=== PATIENT | female | born 1940 | race Caucasian/White ===

== ENCOUNTER 2021-04-08 03:20 | Outpatient (CLI) | payer MEDICARE, SELFPAY ==
[2021-04-08 12:35] LABS: Source Nasal/Nares
[2021-04-08 20:16] LABS: COVID-19 PCR Negative (Negative)
== END 2021-04-08 03:21 | disposition home or self-care (01) ==
LOC: LBO 03:21
PROVIDERS: Visit Provider Ophthalmology
DX: Z20.822 Contact with and (suspected) exposure to COVID-19 (principal); Z01.818 Encounter for other preprocedural examination
CPT/HCPCS: 87635

== ENCOUNTER 2021-04-22 07:27 | Outpatient (CLI) | payer MEDICARE, SELFPAY ==
[2021-04-22 10:14] LABS: Source Nasal/Nares
[2021-04-22 13:06] LABS: COVID-19 PCR Negative (Negative)
== END 2021-04-22 07:28 | disposition home or self-care (01) ==
LOC: LBO 07:28
PROVIDERS: Visit Provider Ophthalmology
DX: Z20.822 Contact with and (suspected) exposure to COVID-19 (principal); Z01.818 Encounter for other preprocedural examination
CPT/HCPCS: 87635

== ENCOUNTER 2021-04-25 10:22 | Day surgery (SDC) | payer MEDICARE, MEDICAID, SELFPAY ==
[2021-04-25 11:05] VITALS: BP 189/87; PULSE 88; RESP 16; TEMP 36.7; O2SAT 98
--- NOTE | 2021-04-25 11:18 | W.ANESPRE ---
General Info Date of Service Date Performed: 04/25/21 Height: 5 ft 5 in Weight: 92.2 kg Body Mass Index (BMI): 33.8 Surgical Procedure: Operation Date: 04/25/21 13:40 Proposed Procedures Side Surgeon p Cataract Extraction with IOL Implant Right Sudarshan Ruth MD Meds Allergies and Home Medications Allergies Allergy/AdvReac Type Severity Reaction Status Date / Time Sulfa (Sulfonamide Allergy Unknown Other (See Verified 04/25/21 10:59 Antibiotics) Comment) Home Medication Medication Instructions Recorded albuterol sulfate 2 puff INHALATION Q4H PRN 04/07/21 aspirin 81 mg PO DAILY 04/07/21 docusate sodium 100 mg PO BID PRN 04/07/21 fluticasone furoate-vilanterol 1 ea INHALATION DAILY 04/07/21 [Breo Ellipta] hydrocodone-acetaminophen 1 tab PO Q4H PRN PRN 04/07/21 metoprolol succinate 50 mg PO DAILY 04/07/21 nitroglycerin 0.3 mg SUBLINGUAL DIRECTED 04/07/21 valsartan 40 mg PO BID 04/25/21 Current Visit Medications: Current Medications Generic Name Dose Route Start Last Admin Trade Name Freq PRN Reason Stop Dose Admin Acetaminophen 1,000 mg 04/25/21 06:00 Acetaminophen 500 Mg Tab PO Q4H PRN PRN Miscellaneous Medication 0 ml 04/25/21 06:00 Prednisolone 1%, Moxifloxacin 0.5%, Nepafenac 0.1% 5ml Btl OD DIRECTED [facility] Miscellaneous Medication 0 ml 04/25/21 06:00 Tropicam./Phenyleph. (1/2.5%) 5 Ml Btl OD DIRECTED [facility] Tetracaine HCl 0 ml 04/25/21 06:00 Tetracaine 0.5% 4 Ml Btl OD DIRECTED [facility] PFSH Active Problems Active Problems: Problem Status Onset Code Posterior subcapsular age-related cataract of left eye H25.042 Cortical cataract of left eye H26.9 Nuclear sclerotic cataract of left eye H25.12 Medical History Active Problem List Posterior subcapsular age-related cataract of left eye (Acute) Cortical cataract of left eye (Acute) Nuclear sclerotic cataract of left eye (Acute) Medical History Anemia Ankylosing spondylitis Asthma CAD (coronary artery disease) Chronic use of opiate drug for therapeutic purpose COPD (chronic obstructive pulmonary disease) COVID-19 vaccination refused Depression Diabetic polyneuropathy associated with type 2 diabetes mellitus SIFUENTES (dyspnea on exertion) Essential hypertension Full code status GERD (gastroesophageal reflux disease) HLA-B27 spondyloarthropathy Hx of carpal tunnel syndrome Hypokalemia Ingrown toenail of right foot Lymphedema Nocturnal hypoxemia Non-pressure chronic ulcer left lower leg, limited to breakdown skin Non-pressure chronic ulcer right lower leg, limited to breakdown skin Onychomycosis NADIA (obstructive sleep apnea) Osteoarthritis of spine Pulmonary HTN PVD (peripheral vascular disease) Secondary lymphedema Type 2 diabetes mellitus without complication, without long-term current use of insulin Urge incontinence Venous insufficiency of both lower extremities Weakness Surgical History Surgical History History of back surgery History of left hip replacement History of right hip replacement Hx of appendectomy Hx of cardiac catheterization 2009 Hx of tonsillectomy Hx of tubal ligation S/P total abdominal hysterectomy and bilateral salpingo-oophorectomy Tobacco Smoking/Tobacco Use Status: Never Alcohol Alcohol Intake: never Substance Use Substance use type: does not use Vital Signs and Lab Results Vital Signs Most Recent Vital Signs in EMR: Most Recent Vital Signs Temp Pulse Resp BP Pulse Ox 36.7 C 88 16 189/87 H 98 04/25/21 11:05 04/25/21 11:05 04/25/21 11:05 04/25/21 11:05 04/25/21 11:05 Lab Results Blood Type / Crossmatch: No Data to Display Complete Blood Count: No Data to Display Complete Metabolic Panel: No Data to Display Liver Function Panel: No Data to Display Coagulation Panel: No Data to Display Cardiac Panel: No Data to Display Arterial Blood Gas: No Data to Display Venous Blood Gas: No Data to Display Pancreas Panel: No Data to Display Thyroid Panel: No Data to Display Infectious Disease: Coronavirus (COVID-19)(PCR) Negative (Negative) 04/22/21 09:05 04/22/21 Coronavirus 2019 Source Nasal/Nares 04/22/21 09:05 04/22/21 Blood Cultures: No Data to Display Toxicology Panel: No Data to Display Imaging and Studies Imaging and Studies EKG Summary: 12/23/20: [facility]: SR with 1st degree block, rate of 86. RBBB Stress Test Summary: 07/14/2014: [facility]: Moderate anterior ischemia. Medically manage per patient. Echocardiogram Summary: 07/19/2014: [facility]: EF 60%, Mild AR, Moderate MR, Mild TR. : [facility]: EF 66%, Moderate , valve area 1.1 with gradient of 28. Mild AR. PASP 46. Mild MR/TR, moderate pHTN. Cardiac Catheterization Summary: 10/12/2009: [facility]: Very mild no non-obstructive disease. Medical management Anesthesia Assessment and Plan Anesthesia History Personal History: No History of Anesthesia Complications Family History: No Family History of Anesthesia Complications Exercise Tolerance Exercise Tolerance: Metabolic Equivalents<4 Pertinent Negatives Pertinent Negatives: No Symptoms of GERD Cardiac & Pulmonary Exam Cardiac Exam: Normal S1/S2 Heart Sounds Pulmonary Exam: Clear Bilateral Breath Sounds Implantable Cardiac Device Does patient have a Pacemaker or an ICD?: No Airway Exam Known Difficult Airway: No Mallampati Class: 1 Mouth Opening: Normal (> 3cm) Thyromental Distance: Greater than 3 cm Neck Range of Motion: Full ROM Neck Circumference: Normal Teeth Condition: Normal Dentition ASA Classification ASA Score: ASA 3 Emergency Case?: No NPO Status NPO Status: NPO Clears >2 hours, Solids >8 hours Anesthesia Plan Resuscitation Status: Full Code Anesthesia Technique: MAC Anesthesia Airway Planned: Natural Airway Monitors Used: Standard Monitors Preoperative Comments:: Pt. states she has dyspnea on exertion. Her new Echo shows moderate, but almost severe which is new compared to her 2015 echo. She states she was told her most recent echo was just fine. Today she did not take her metoprolol. She has sinus allergy symptoms with post nasal drip, which she did have when she was COVID tested. I advised her to followup with PCP/Cardiology to make sure her medical management is optimized. I advised her she would be ok for cataract procedure, but likely would be referred elsewhere for bigger procedures.
[2021-04-25] MEDS: Tropicam./Phenyleph. (1/2.5%) 5 ML BTL OD ×3 (11:20→11:30)
[2021-04-25 11:25] VITALS: BMI 33.8
[2021-04-25] MEDS: Lidocaine 2% Jelly 6 ML SYR (11:58)
[2021-04-25] MEDS: Tetracaine 0.5% 4 ML BTL OD (11:58)
[2021-04-25] MEDS: Povidone-Iodine Ophth 30 ML BTL (11:58)
[2021-04-25] MEDS: Trypan Blue 0.06% 0.5 ML SYR (12:02)
[2021-04-25] MEDS: Duovisc Viscoelastic System EACH 1 EACH (12:06)
[2021-04-25] MEDS: Balanced Salt Soln.-PLUS 500 ML BAG (12:06)
[2021-04-25 12:30] VITALS: BP 184/80; PULSE 71; RESP 16; TEMP 36.8; O2SAT 99
--- NOTE | 2021-04-25 12:36 | W.PM.DSUDISC ---
Discharge Plan Disposition Patient Disposition: HOME Condition: Good Discharge Details Attending Provider: Sudarshan Ruth Primary Care Provider: No,Local Home Meds and New Rx's Prescriptions: No Action valsartan 40 mg Tablet 40 mg PO BID RF: 0 nitroglycerin 0.3 mg Tablet, Sublingual 0.3 mg sublingual DIRECTED RF: 0 metoprolol succinate 50 mg Tablet Extended Release 24 Hr 50 mg PO DAILY RF: 0 hydrocodone-acetaminophen 5-325 mg Tablet 1 tab PO Q4H PRN PRNRF: 0 aspirin 81 mg Capsule,Delayed Release(Dr/Ec) 81 mg PO DAILY RF: 0 docusate sodium 100 mg Capsule 100 mg PO BID PRNRF: 0 albuterol sulfate 90 mcg/actuation Hfa Aerosol Inhaler 2 puff INHALATION Q4H PRNRF: 0 Breo Ellipta 100-25 mcg/dose Blister With Device 1 ea INHALATION DAILY RF: 0 Discharge Instructions Stand Alone Forms: Post-op Topical Cataract, Praveena Haddad (DSU) Discharge Orders Discharge Orders: Discharge Order (Routine); Ordered 04/25/21 Ordered By: Sudarshan Ruth DS: Diagnosis Discharge Diagnosis (1) Posterior subcapsular age-related cataract of left eye: Status: Resolved (2) Cortical cataract of left eye: Status: Resolved (3) Nuclear sclerotic cataract of left eye: Status: Resolved
--- NOTE | 2021-04-25 12:37 | W.PM.OP ---
Date of service: 04/25/21 Time of Service: 12:37 Operative Note Operative Note DATE OF PROCEDURE: 04/25/21 PRE-OP DIAGNOSIS: Dense nuclear/cortical/posterior subcapsular cataract, right eye POST-OP DIAGNOSIS: same PROCEDURE: Cataract extraction using phacoemulsification with intraocular lens implantation, right eye, using capsular staining with Vision Blue SURGEON: Sudarshan Ruth ANESTHESIA TYPE: Local By Surgeon and MAC Refer to Anesthesia Record PATHOLOGY: none sent COMPLICATIONS: None Patient was transported to: same day Patient's condition: stable Implants: Jude and Jude / [employer] Tecnis [id number] Indications: Progressive visual loss due to cataract, right eye Procedure Description: CATARACT SURGERY OPERATIVE REPORT PREOPERATIVE DIAGNOSIS: 1. Dense nuclear/cortical/posterior subcapsular cataract, right eye 2. Poor red reflex secondary to #1 POSTOPERATIVE DIAGNOSIS: Same OPERATION: 1. Cataract extraction using phacoemulsification with posterior chamber intraocular lens implant, right eye. 2. Capsular staining with Vision Blue IOL: IOL Technical Service Representative/Model: Jude & Jude / DOROTA Tecnis [id number] IOL Power: + 23.0 diopters IOL Serial Number: [id number] Optic Diameter: 6.0mm Haptic/Overall Diameter: 13.0mm PHACO INFO: Jesus [employer] Vision System with OZil and Active [employer]uidics Cumulative Dispersed Energy (CDE): 10.38 seconds SURGEON: Sudarshan Ruth MD, DEJUAN ANESTHESIA: Monitored Anesthesia Care (MAC), with local sub-tenon's anesthetic infiltration COMPLICATIONS: None SPECIMENS: None INDICATIONS FOR PROCEDURE: The patient is an 80-year-old lady with history of progressive decreased vision in both eyes. She has significant bilateral nuclear/cortical/posterior subcapsular cataract with poor visual acuity. The option of cataract surgery was offered to the patient and she wished to proceed. PROCEDURE: The correct surgical eye was identified and marked as the right eye and the pupil was dilated in the preoperative area using mydriatics and cycloplegics. The dilated pupil size was 7.5 mm. She elected to proceed without oral sedation.. The patient was brought to the operating room where cardiopulmonary monitoring was instituted and surgical time-out was performed, confirming the correct operative eye and IOL power. Positioning was extremely challenging due to cervical deformity/disc disease. Topical anesthesia was administered and ophthalmic povidone-iodine 5% was instilled into the conjunctival fornices. Lidocaine gel was applied to the cornea and the william-ocular area was prepped with Betadine 10% solution and draped in the usual sterile fashion for intraocular surgery, including an aperture drape. A Tegaderm transparent film dressing was cut in half and used to cover the lashes and lid margins. Care was taken to sequester the lashes and lid margins under the Tegaderm dressing. A lid speculum was placed between the lids of the operative eye and the Scarlet-Betty operating microscope was maneuvered into position. Albert scissors were then used to make a conjunctival buttonhole approximately 6mm posterior to the limbus in the inferonasal quadrant. Blunt dissection was carried out to expose bare sclera, and a blunt-tipped sub-tenon?s anesthesia cannula was introduced and passed posteriorly along the globe where non-preserved plain lidocaine was injected into posterior sub-Tenon?s space. A sideport knife was used to make a paracentesis port inferotemporally. Intraocular phenylephrine/lidocaine was injected into the anterior chamber. Air was injected into the anterior chamber, followed by Vision Blue, which was painted over the anterior capsule and then irrigated out with BSS. The anterior chamber was filled with viscoelastic. A 2.4mm keratome knife was used to create a half-thickness groove at the limbus and then to construct a three-plane near-clear corneal tunnel extending 2.0mm into clear cornea superiortemporally. A flap was raised on the anterior capsule and capsulorhexis forceps were used to complete a continuous curvilinear capsulorhexis of 4.8 mm. Balanced salt solution was then used to perform cortical cleaving hydrodissection and nuclear hydrodelineation until the lens could be freely rotated within the capsular bag. The lens nucleus was then disassembled and removed within the capsular bag and iris plane using phacoemulsification. Residual cortical material was removed using the I/A handpiece. The posterior capsule was carefully polished to remove as much residual lens epithelial cells as safely possible. The capsular bag was then inflated and the anterior chamber deepened with viscoelastic. The lens implant described above was inserted into the capsular bag using the DOROTA Ransom Injector. A Kuglen hook was used to dial the IOL into position. Residual viscoelastic was then removed first from posterior to the IOL, then from the anterior chamber using the I/A handpiece. The lens implant was noted to center nicely within the capsular bag. The incisions were stromally hydrated, and the anterior chamber was reformed using BSS. Then 0.5cc of moxifloxacin 1.0mg/ml were injected into the capsular bag and anterior chamber. The incisions were checked with a Weck spear and found to be secure. Several drops of ophthalmic povidone-iodine 5% were then applied to the eye followed by two drops of Imprimis combination prednisolone/moxifloxacin/nepafenac solution. The drapes were removed and a clear plastic protective eye shield was placed over the eye. The patient was then returned to [facility] Day Surgery in stable condition.
[2021-04-25] MEDS: Metoprolol CR 50 MG TABCR PO ×2 (13:05→13:07)
--- NOTE | 2021-04-25 13:16 | ANES.POST_ITS ---
Postoperative Evaluation Date, Time and Location Date Performed: 04/25/21 Time Performed: 12:35 Patient Location: Day Surgery Unit Vital Signs Most Recent Imported Vital Signs: Most Recent Vital Signs Temp Pulse Resp BP Pulse Ox 36.8 C 71 16 184/80 H 99 04/25/21 12:30 04/25/21 12:30 04/25/21 12:30 04/25/21 12:30 04/25/21 12:30 Pain Score Most Recent Pain Score: Most Recent Pain Score Pain Level 0 04/25/21 12:30 Assessment Mental Status: Awake (Alert & Oriented to Patient Baseline) Airway and Respiratory Function: Patent airway with normal (patient baseline) respiratory exam Cardiovascular Function: Hemodynamically Stable Hydration Status: Adequately Hydrated Nausea & Vomiting: No Nausea or Vomiting Pain: Pt. Denies Any Pain Peripheral Nerve Block: Patient did not receive a nerve block Teaching Patient Teaching: Advised to seek followup for the following concerns (See exp lanation) (Recommend Cardiology followup for optimazation given poor understanding of her new moderate . Will send message to Dr. Kincaid.) Concerns: Cardiac Optimization
== END 2021-04-25 13:20 | disposition home or self-care (01) ==
PROVIDERS: Visit Provider Ophthalmology
PROC: (CPT 66984; principal; 2021-04-25 13:30)
DX: H25.042 Posterior subcapsular polar age-related cataract, left eye (principal); J44.9 Chronic obstructive pulmonary disease, unspecified; E11.42 Type 2 diabetes mellitus with diabetic polyneuropathy
CPT/HCPCS: 66984; V2632